=== PATIENT | female | born 1970 | race Caucasian/White ===

== ENCOUNTER 2025-02-12 07:12 | Day surgery (SDC) | payer BC ==
[~2025-02-12] VITALS: Ht 162.6 cm; Wt 68.5 kg
[~2025-02-12 07:12] MED LIST: PANT20TA6 PO
[2025-02-12] MEDS ORDERED: propofoL 200 MG/20 ML VIAL As Ordered ONE (08:34)
[2025-02-12] MEDS ORDERED: LIDOCAINE 2% 100MG/5ML SDV (FOR ANES.) As Ordered ONE (08:34)
[2025-02-12 08:47] VITALS: TEMP 97.5
[2025-02-12 09:03] VITALS: BP 146/82; O2SAT 98
== END 2025-02-12 09:11 | disposition home or self-care (01) ==
LOC: M OPP 07:12
PROVIDERS: ATTEND Surgery
DX: K44.9 Diaphragmatic hernia without obstruction or gangrene (principal); K31.89 Other diseases of stomach and duodenum; Z79.899 Other long term (current) drug therapy